=== PATIENT | female | born 1980 | race Caucasian/White ===

== ENCOUNTER 2017-11-17 05:16 | Emergency (ER) | payer SELFPAY ==
[~2017-11-17] VITALS: Ht 157.5 cm; Wt 63.5 kg
[~2017-11-17 05:16] MED LIST: IBUP-974
[2017-11-17 05:22] VITALS: BP 133/86
== END 2017-11-17 05:47 | disposition home or self-care (01) ==
LOC: MED 05:16
DX: L03.032 Cellulitis of left toe (principal); Z79.899 Other long term (current) drug therapy; Z88.5 Allergy status to narcotic agent; Z91.040 Latex allergy status
CPT/HCPCS: 99283

== ENCOUNTER 2018-03-06 22:11 | Emergency (ER) | payer OTHER ==
[~2018-03-06] VITALS: Ht 157.5 cm; Wt 62.7 kg
[2018-03-06 22:20] VITALS: BP 137/94
[2018-03-06 23:20] LABS: APPEARANCE,URINE SLIGHTLY CLOUDY (CLEAR); BILIRUBIN,URINE NEGATIVE (NEGATIVE); BLOOD, URINE TRACE-L (NEGATIVE); COLOR,URINE YELLOW (YELLOW); LEUKOCYTE ESTERASE ,URINE SMALL (NEGATIVE); NITRITE, URINE NEGATIVE (NEGATIVE); PH,URINE 6.5 (5.0-9.0); UGLUCOSE NEGATIVE (NEGATIVE)
[2018-03-06 23:21] LABS: RBC,URINE 0-5 (RARE) /HPF (0-5); WBC,URINE 16-25 (MOD) /HPF (0-5)
--- NOTE | 2018-03-06 23:34 | NUR ---
PT AMBULATED TO B BY LASHANDA CARTER
[2018-03-06] MEDS ORDERED: NACL 0.9% 1,000 ML IV ONE (23:55)
[2018-03-06] MEDS ORDERED: cefTRIAXone 2,000 MG in DEXTROSE 5% 100 ML IV ONE (23:55)
[2018-03-06] MEDS ORDERED: KETOROLAC 30 MG/ML VIAL IVP ONE (23:55)
[2018-03-07] MEDS ORDERED: cefTRIAXone 2,000 MG VIAL ONE (00:07)
--- NOTE | 2018-03-07 00:09 | NUR ---
PT REPORTS L FLANK PAIN X1 DAY, ALSO REPORTS URINARY FREQUENCY. DENIES N/V/D/ PAIN IS 8/10 ACHING. NO PMH ALLERGIES---CODEINE, LATEX
--- NOTE | 2018-03-07 01:37 | NUR ---
REPORT TO [facility] CARTER
--- NOTE | 2018-03-07 01:38 | NUR ---
RECEIVED REPORT FROM AM NURSE. PT SITTING COMFORTABLY IN CHAIR, PT REPORTS 0/10 FLANK PAIN AT THIS TIME, ALL NEEDS MET.
[2018-03-07 01:48] VITALS: BP 137/94
--- NOTE | 2018-03-07 01:48 | NUR ---
Patient discharged with v/s stable. Written and verbal after care instructions given and explained. Patient alert, oriented and verbalized understanding of instructions. Ambulatory with steady gait. All questions addressed prior to discharge. ID band removed. Patient advised to follow up with PMD. Rx of Naprosyn and Ciprofloxacin given. Patient educated on indication of medication including possible reaction and side effects. Opportunity to ask questions provided and answered.
== END 2018-03-07 01:48 | disposition home or self-care (01) ==
LOC: MED 22:11
DX: N39.0 Urinary tract infection, site not specified (principal); Z88.5 Allergy status to narcotic agent; Z91.040 Latex allergy status
CPT/HCPCS: 81001; 81025; 87086; 87186; 96365; 96375; 99284; J0696; J1885

== ENCOUNTER 2019-06-04 15:43 | Emergency (ER) | payer OTHER ==
[~2019-06-04] VITALS: Ht 157.5 cm; Wt 61.7 kg
[2019-06-04 15:46] VITALS: BP 123/83
--- NOTE | 2019-06-04 15:55 | NUR ---
PT AMBULATED TO RESTROOM TO PROVIDE URINE SAMPLE
--- NOTE | 2019-06-04 16:20 | NUR ---
PATIENT PRESENTS TO ED WITH C/O LOWER ABDOMINAL PAIN RADIATING TO RIGHT FLANK X2 DAYS. PAIN COMES AND GOES. PAIN 9/10, THROBBING/SHOOTING. URINARY FREQUENCY X 2 DAYS. PATIENT STATES PAIN OF 9/10 AT THIS TIME; VSS; PATIENT POSITIONED FOR COMFORT; HOB ELEVATED; BEDRAILS UP X2; BED DOWN. ER MD MADE AWARE OF PT STATUS.
--- NOTE | 2019-06-04 16:27 | NUR ---
Patient being evaluated by physician at bedside.
[2019-06-04 16:40] VITALS: BP 116/77
--- NOTE | 2019-06-04 16:40 | NUR ---
Patient discharged with v/s stable. Written and verbal after care instructions given and explained. Patient alert, oriented and verbalized understanding of instructions. Ambulatory with steady gait. All questions addressed prior to discharge. ID band removed. Patient advised to follow up with PMD. Rx of DIFLUCAN, NAPROSYN, CEPHALEXIN, ZOFRAN ODT given. Patient educated on indication of medication including possible reaction and side effects. Opportunity to ask questions provided and answered.
== END 2019-06-04 16:40 | disposition home or self-care (01) ==
LOC: MED 15:43
DX: N12 Tubulo-interstitial nephritis, not specified as acute or chronic (principal); Z98.890 Other specified postprocedural states; Z79.899 Other long term (current) drug therapy; Z88.5 Allergy status to narcotic agent; Z91.040 Latex allergy status
CPT/HCPCS: 81002; 81025; 99283